=== PATIENT | male | born 1960 | race Caucasian/White ===

== ENCOUNTER → 2019-04-08 | Outpatient (CLI) | payer MEDICARE, OTHER ==
--- NOTE | 2019-04-08 10:50 | XR ---
EXAMINATION TYPE: XR chest 2V, XR sternum DATE OF EXAM: 04/08/2019 COMPARISON: NONE HISTORY: Sternal growth. TECHNIQUE: Frontal and lateral views of the chest are obtained. 2 views of the sternum were also obt ained. FINDINGS: There is no focal air space opacity, pleural effusion, or pneumothorax seen. The cardiac silhouette size is within normal limits. There is a bulbous contour of the sternal manubrium on the l ateral view with no gross abnormality seen on the frontal view of the sternum. No acute fracture is s een of the osseous structures. Right humeral anchors partially visualized. IMPRESSION: 1. No acute cardiopulmonary process. 2. Bulbous contour the sternal manubrium. Further evaluation with CT chest is recommended to evaluate for osseous destruction, lytic lesion, or expansile lesion.
== END | disposition home or self-care (01) ==
LOC: RADXRMAIN 10:11
PROVIDERS: ATTEND Family Medicine
DX: R07.89 Other chest pain (principal)
CPT/HCPCS: 71046; 71120